=== PATIENT | female | born 1960 | race Caucasian/White ===

== ENCOUNTER 2017-10-19 07:20 | Day surgery (SDC) | payer OTHER ==
[~2017-10-19] VITALS: Ht 157.5 cm; Wt 74.6 kg
[~2017-10-19 07:20] MED LIST: METO25ER PO
== END 2017-10-19 09:00 | disposition home or self-care (01) ==
LOC: ORSCSDS 07:20
PROVIDERS: Internal Medicine Gastroenterology
PROC: 0DB98ZX Excision of Duodenum, Via Natural or Artificial Opening Endoscopic, Diagnostic (ICD-10-PCS; principal; 2017-10-19 08:30)
PROC: 0DB68ZX Excision of Stomach, Via Natural or Artificial Opening Endoscopic, Diagnostic (ICD-10-PCS; principal; 2017-10-19 08:30)
DX: K74.60 Unspecified cirrhosis of liver (principal); K29.70 Gastritis, unspecified, without bleeding; Z13.810 Encounter for screening for upper gastrointestinal disorder; I10 Essential (primary) hypertension; Z79.899 Other long term (current) drug therapy
CPT/HCPCS: 88305; 88342; J0330; J1980; J2405

== ENCOUNTER → 2023-10-18 | Outpatient (CLI) | payer OTHER ==
[2023-10-19 08:11] LABS: A/G RATIO 1.5 (1.2-2.2); ALKALINE PHOSPHATASE, S 67 IU/L (44-121); ALT (SGPT) 21 IU/L (0-32); AST (SGOT) 27 IU/L (0-40); BILIRUBIN, TOTAL 0.8 mg/dL (0.0-1.2); BUN 25 mg/dL (8-27); BUN/CREATININE RATIO 26 (12-28); CALCIUM, SERUM 10.8 mg/dL (8.7-10.3); CARBON DIOXIDE, TOTAL 23 mmol/L (20-29); CHLORIDE, SERUM 102 mmol/L (96-106); CHOLESTEROL, TOTAL 215 mg/dL (100-199); CREATININE, SERUM 0.96 mg/dL (0.57-1.00); GLUCOSE, SERUM 102 mg/dL (70-99); HDL CHOLESTEROL 57 mg/dL (>39); LDL CHOLESTEROL CALC 135 mg/dL (0-99); POTASSIUM, SERUM 4.6 mmol/L (3.5-5.2); PROTEIN, TOTAL, SERUM 7.5 g/dL (6.0-8.5); SODIUM, SERUM 139 mmol/L (134-144); TRIGLYCERIDES 127 mg/dL (0-149); VLDL CHOLESTEROL CAL 23 mg/dL (5-40)
[2023-10-19 13:10] LABS: BASOPHILS ABSOLUTE AUTO 0.09 K/mm3 (0.00-0.23); BASOPHILS PERCENT AUTO 1 % (0-2); EOSINOPHILS ABSOLUTE AUTO 0.65 K/mm3 (0.00-0.68); EOSINOPHILS PERCENT AUTO 9 % (0-6); Hematocrit 46.3 % (33.0-51.0); IMMATURE GRAN ABSOLUTE AUTO 0.02 K/mm3 (0.00-0.10); IMMATURE GRAN PERCENT AUTO 0 % (0-1); LYMPHOCYTES ABSOLUTE AUTO 2.35 K/mm3 (0.84-5.20); LYMPHOCYTES PERCENT AUTO 31 % (21-46); MONOCYTES ABSOLUTE AUTO 0.65 K/mm3 (0.16-1.47); MONOCYTES PERCENT AUTO 9 % (4-13); Mean Corpuscular HGB 30.9 pg (26.0-34.0); Mean Corpuscular HGB Conc 32.4 g/dL (31.5-36.5); Mean Corpuscular Volume 95 fL (80-100); Mean Platelet Volume 11.8 fL (9.1-12.4); NEUTROPHILS ABSOLUTE AUTO 3.92 K/mm3 (1.96-9.15); NEUTROPHILS PERCENT AUTO 51 % (41-73); Platelet Count 150 K/mm3 (150-400); RDW Coefficient Variation 12.2 % (11.7-14.2); RDW Standard Deviation 42.7 fL (35.1-46.3); Red Blood Cell Count 4.86 M/mm3 (3.80-5.20); White Blood Cell Count 7.68 K/mm3 (4.00-11.30)
== END | disposition home or self-care (01) ==
LOC: LAB 10-14 12:45 → LAB SHORT 10-14 12:45 → LAB 12:45
PROVIDERS: Student in an Organized Health Care Education/Training Program
DX: E78.2 Mixed hyperlipidemia (principal); I10 Essential (primary) hypertension
CPT/HCPCS: 80053; 80061; 85025

== ENCOUNTER → 2023-11-07 | Outpatient (CLI) | payer OTHER | LOC: LAB SHORT 08:23 → LAB 08:23 | DX: B35.1 Tinea unguium (principal); L60.2 Onychogryphosis | CPT/HCPCS: 88305; 88312 ==

== ENCOUNTER → 2024-12-17 | Outpatient (CLI) | payer OTHER | LOC: LAB SHORT 08:39 → PLD 08:39 → LAB 08:39 | DX: L60.2 Onychogryphosis (principal); B35.1 Tinea unguium | CPT/HCPCS: 88305; 88312 ==